=== PATIENT | female | born 1975 | race Caucasian/White ===

== ENCOUNTER 2019-05-17 16:43 | Emergency (ER) | payer MEDICAID, SELFPAY ==
[2019-05-17 16:43] VITALS: BP 149/115; PULSE 95; RESP 16; TEMP 36.9; O2SAT 96; BMI 63.5
[2019-05-17 17:07] VITALS: O2SAT 98
--- NOTE | 2019-05-17 17:22 | ED.VISSUMM ---
- ER Visit Summary Date of Service: 05/17/19 Chief Complaint: Cough History of Present Illness: The patient is a 44 F with no local primary care physician. She reports that she moved here from [place] not long ago. States she has a cough began 2 weeks ago. It is productive yellow sputum without blood. She denies any fever or chills. She reports that she has been wheezing and has had mild difficulty breathing. She does not have an inhaler that she uses. She does smoke half pack per day. Patient reports that she also has an abscess behind her left nipple that began approximately 1 week ago. She has a sharp pain Zeta 10 severity. It is increased with touching it. Nothing makes this better. She reports that she has had this multiple times in the past. Physical Examination: Vitals: Stable. Afebrile. General: Well-nourished and well-developed. Head: Normocephalic atraumatic. Neck: Supple, no lymphadenopathy. No JVD. Nontender. Cardiovascular: Regular rate and rhythm. No murmurs. Respiratory: No respiratory distress. Clear to auscultation bilaterally. Abdominal: Soft, nontender, nondistended, normal bowel sounds. No guarding, rebound, or peritoneal signs. Back: Nontender. Extremities: Nontender, no edema. Skin: Posterior to her left area Rohan there is a 2 cm nodule/mass. There is no induration, fluctuance, or erythema of her skin.. Neurologic: Alert and oriented ?3. Cranial nerves II through XII are intact. Normal strength and sensation. Psych: Normal affect. Emergency Department Course and Treatment: Patient reports that she has had mammograms in the past. She reports that she has had to have this abscess drained previously. At this time there is no abscess to drain. She was given a dose of doxycycline. Treatment Plan: Patient will be discharged with instructions to follow-up with Dr. Meza and/or Dr. Jonathan Restrepo in 3 to 5 days for repeat examination of this abscess. She does understand that if this not getting better with conservative management that it may require incision and drainage. She also may require mammogram to make sure that this is not a mass. She is instructed to follow-up with Dr. steven regarding her cough. She will be discharged with doxycycline and an albuterol MDI. Return to the emergency department for any worsening symptoms. Disposition: To home in [facility] stable condition. Impression: 1. URI. 2. Left breast abscess. This note was generated with [employer] dictation software. It may contain incorrect words, spelling, and punctuation that were not noted in review of the chart prior to signing ED Disposition - Plan for ED Patient: Disposition: Home or Assisted Living Instructions: ABSCESS, Antiobiotic Treatment Only, BRONCHITIS, Antiobiotic Treatment (Adult) Prescriptions: Doxycycline 100 mg PO BID #20 cap Prescription Printed Albuterol Inhaler [Ventolin Hfa] 2 puff INHALATION Q4H PRN PRN #1 inhaler PRN Reason: Wheezing Prescription Printed Referrals: Saige Preston MD [STAFF PHYSICIAN] - 3-5 Days if not improving Stacia Nguyen MD [STAFF PHYSICIAN] - 3-5 Days if not improving Cece Steven DO [NON-STAFF] - 1 Week if not improving
[2019-05-17] MEDS: Doxycycline 100 MG CAPSULE PO (18:20)
== END 2019-05-17 18:21 | disposition home or self-care (01) ==
PROVIDERS: Emergency Provider Emergency Medicine
DX: J06.9 Acute upper respiratory infection, unspecified (principal); N61.1 Abscess of the breast and nipple; R06.2 Wheezing; F17.200 Nicotine dependence, unspecified, uncomplicated
CPT/HCPCS: 99283

== ENCOUNTER 2020-01-23 13:01 | Emergency (ER) | payer MEDICAID, SELFPAY ==
[2020-01-23 13:03] VITALS: BP 149/92; PULSE 78; RESP 18; TEMP 36.1; O2SAT 98; BMI 65.4
[2020-01-23 14:24] VITALS: BP 119/84; PULSE 85; RESP 15; O2SAT 97
--- NOTE | 2020-01-23 14:27 | ED.VIS.GEN ---
History of Present Illness Chief Complaint: Back Informant: Patient Onset: Weeks - 1 week Current Severity: Moderate Maximum Severity: Severe Narrative: Patient presents secondary 1 week history of low back pain with radiation to her legs. She does have history of degenerative disc disease and has chronic neuropathy to her legs. Patient states in the past they have talked about doing injections in her back but she moved and has not seen a new doctor in this area. She denies any change in activity or injury a week ago that precipitated her symptoms. No problems with bowel or bladder control. She is currently on baclofen as well as Neurontin. - Past Medical History (1) Degenerative disc disease Status: Chronic (2) Neuropathy Status: Chronic (3) Pulmonary embolism Status: Chronic Past Medical History - Allergies and Home Meds Allergies/Adverse Reactions: Allergies No Known Allergies Allergy (Verified 01/23/20 13:02) Primary Care Physician: Care Physician,No Primary [Primary Care Provider] - Smoking Status: Current every day smoker Review of Systems General: Denies: Chills, Fever Eyes: Denies: Visual changes - bilaterally ENT: Denies: Bilateral ear pain Cardiovascular: Denies: Chest pain Respiratory: Denies: Dyspnea, Cough Gastrointestinal: Denies: Abdominal pain, Nausea, Vomiting, Diarrhea Genitourinary: Denies: Dysuria Musculoskeletal: Reports: Back pain, Extremity Pain Skin: Denies: Rash, Wounds Neurological: Denies: Headache Hematologic: Denies: Easy bruising, Easy bleeding Allergy: Denies: Uticaria Physical Exam Vital Signs/Narrative: Vital Signs Temp Pulse Resp BP Pulse Ox 01/23/20 13:03 97 F L 78 18 149/92 H 98 Inital Vital Signs reviewed: Yes General: Well nourished, Well developed Head: Normocephalic ENT: Moist mucous membranes Neck: Supple Cardiovascular: Regular rate, Regular rhythm Respiratory: No distress, CTA bilaterally Abdomen: Soft, Nontender, Normal bowel sounds Back: - - Reproducible tenderness in the low lumbar midline and over the sacrum. No overlying skin changes. Skin: Normal color, No rash Neurological: Alert, Oriented x3, Normal Strength, Normal Sensation Psychological: Normal affect Diagnostic/Tx/Re-eval - Medical Decision Making Patient presents with 1 week history of low back pain with normal neuro exam. She does have history of degenerative disc disease and is already on baclofen as well as gabapentin. She will be given oxycodone as well as prednisone. She will be referred to Dr. Morris, storm on the no doc list. ED Disposition - Plan for ED Patient: Disposition: Home or Assisted Living Diagnosis: Back pain with radiculopathy Instructions: ED LUMBAR RADICULOPATHY, ED Neck Back Pain General Prescriptions: Prednisone [Deltasone] 60 mg PO DAILY #15 tab Transmission Status: Pending to [id number] Oxycodone HCl/Acetaminophen [Percocet 5/325] 1 tablet PO Q6H PRN PRN 3 Days #12 tablet PRN Reason: Pain Transmission Status: [facility] Referrals: Jonathan Morris MD [STAFF PHYSICIAN] - As Needed
[2020-01-23] MEDS: oxyCODONE 5 MG Tablet 10 MG PO (14:34)
[2020-01-23] MEDS: predniSONE 20 MG Tablet 60 MG PO (14:34)
[2020-01-23 14:39] VITALS: BP 119/84; PULSE 85; RESP 18
== END 2020-01-23 14:39 | disposition home or self-care (01) ==
PROVIDERS: Emergency Provider Emergency Medicine
DX: M54.5 Low back pain (principal); M54.10 Radiculopathy, site unspecified; F17.200 Nicotine dependence, unspecified, uncomplicated; Z79.01 Long term (current) use of anticoagulants; Z79.899 Other long term (current) drug therapy; Z86.711 Personal history of pulmonary embolism
CPT/HCPCS: 99283